=== PATIENT | female | born 1965 | race Caucasian/White ===

== ENCOUNTER 2025-02-23 13:41 | Emergency (ER) | payer BC, SELFPAY ==
[2025-02-23 14:03] VITALS: BP 142/97
[2025-02-23 14:41] LABS: % Basophils 0.9 % (0-2); % Eosinophils 8.4 % (0-6); % Immature Granulocytes 0.3 % (0-0.5); % Monocytes 8.2 % (1.7-9.3); % Neutrophils 49.2 % (42.2-75.2); Absolute Basophils 0.1 10^3/uL (0-0.2); Absolute Eosinophils 0.6 10^3/uL (0-0.7); Absolute Lymphocytes 2.2 10^3/uL (1.2-3.4); Absolute Monocytes 0.5 10^3/uL (0.1-0.6); Absolute Neutrophils 3.2 10^3/uL (1.4-6.5); Hematocrit 39.3 % (37.0-47.0); Hemoglobin 13.8 g/dL (12.0-16.0); Mean Corp Hgb Conc. 35.1 g/dL (33.0-37.0); Mean Corpuscular Hgb 32.7 pg (27.0-31.0); Mean Corpuscular Volume 93.1 fL (81.0-99.0); Mean Platelet Volume 9.2 fL (7.4-10.4); Nucleated Red Blood Cells % 0 %; Platelet Count 292 10^3/uL (130-400); Red Blood Cell Count 4.22 10^6/uL (4.20-5.40); Red Cell Dist. Width 12.7 % (11.5-14.5); White Blood Cell Count 6.6 10^3/uL (4.8-10.8)
[2025-02-23 15:01] LABS: ALT (SGPT) 34 U/L (0-35); AST (SGOT) 56 U/L (14-36); Albumin 4.9 g/dl (3.5-5.0); Alkaline Phosphatase 85 U/L (38-126); Blood Urea Nitrogen 6 mg/dl (7-17); Calcium 9.6 mg/dl (8.4-10.2); Carbon Dioxide 28 mmol/L (22-30); Chloride 103 mmol/L (98-107); Glucose 77 mg/dl (70-99); Potassium 4.6 mmol/L (3.5-5.1); Sodium 138 mmol/L (135-145); Total Bilirubin 0.7 mg/dl (0.2-1.3); Total Protein 7.5 g/dl (6.3-8.2); eGFR > 60.00
--- NOTE | 2025-02-23 18:53 | ED.GENMED ---
History of Present Illness
General
Chief Complaint: Rectal Bleeding
Time Seen by Provider: 02/23/25 17:39
History of Present Illness
History of Present Illness:
59-year-old female presenting to the emergency department for rectal bleed and rectal discomfort. Patient reports symptoms have been ongoing since October. She had a colonoscopy in September, noted to be normal. She was diagnosed with an anal
fissure. She has had persistent rectal discomfort, bleeding with bowel movements. She has been using sitz bath's, MiraLAX, fiber, topical lidocaine without significant relief. Denies associated abdominal pain. She is not on any blood thinners.
Denies chest pain, difficulty breathing, fever or additional acute medical complaints.
Phy Exam
Physical Exam
Physical Exam:
General: Well-appearing, no clinical signs of dehydration, nontoxic and in no acute distress
HEENT: protecting airway
Neck: appears supple
CV: Normal heart rate
Resp: No accessory muscle use, no increased work of breathing
Abd: Soft and non-distended, no tenderness to palpation
Extremities: No deformities, no swelling
Neuro: alert, no focal neurologic deficit
: Anal fissure at the 12 o'clock position
Rectal: deferred
Psych: Normal affect
Skin: Intact
Course
Orders/Labs/Results
Orders:
Orders
02/23/25 14:12
CMP [Comprehensive Metabolic Panel] Urgent
Complete Blood Count/With Diff Urgent
02/23/25 18:33
Lidocaine 2% [Lidocaine Uro-Jet 2%] 1 syringe TOPICAL NOW STA
Abnormal Lab Results
02/23/25
14:12
MCH 32.7 H pg
(27.0-31.0)
Eosinophils % 8.4 H %
(0-6)
BUN 6 L mg/dl
(7-17)
Creatinine 0.5 L mg/dL
(0.6-1.0)
AST 56 H U/L
(14-36)
02/23/25 14:12
02/23/25 14:12
Vital Signs
Initial and Last Documented VS:
Initial Vital Signs
Temp Pulse Resp BP Pulse Ox
98.3 F 90 18 142/97 97
02/23/25 14:03 02/23/25 14:03 02/23/25 14:03 02/23/25 14:03 02/23/25 14:03
Last Documented Vital Signs
Temp Pulse Resp BP Pulse Ox
98.3 F 90 18 142/97 97
02/23/25 14:03 02/23/25 14:03 02/23/25 14:03 02/23/25 14:03 02/23/25 14:03
MDM/Problems Addressed
MDM/Problems Addressed:
59-year-old female presenting with persistent rectal discomfort. Vital signs are normal.
On exam patient is resting comfortably, no acute distress or discomfort. Vital signs are stable. Rectal examination is consistent with an anal fissure. No rubio rectal bleeding. Labs checked, normal hemoglobin without any concern for
hemorrhage. No tenderness to the abdomen. Without present concern for any significant GI bleed or acute intra-abdominal abnormality. Ultimately feel stable for discharge with outpatient colorectal follow-up for possible surgical management given
duration of symptoms. Will prescribe nifedipine, topical. Encouraged continued use of fiber and sitz baths. Will provide information for colorectal surgery. Return precautions discussed and patient verbalized understanding
*Critical Care Note
Total Time (30-74mins, 75-104mins- exclusive of procedures): Not Applicable
ED Attending Note
-
Portions of this chart may have been created with voice recognition software.� Occasional wrong word or��sound alike� substitutions may have occurred due to the inherent limitations of voice recognition software.
Discharge Plan
Departure
Patient Disposition: Home (Routine Discharge)
Date of Disposition: 02/23/25
Time of Disposition: 18:52
Patient with high blood pressure during this ER visit?: No
Condition: Good
Discharge Problem:
Anal fissure
Instructions: Anal Fissure (DC)
Prescriptions:
New
nitroglycerin 0.4 % (w/w) ointment
1 inch OH BID 30 Days Qty: 30 0RF
Referrals:
Fallon Brantley DO [Family Provider] -
Marbin Del Valle MD [Active] -
Activity Restrictions/Additional Instructions:
You were seen in the emergency department for rectal discomfort
You were found to have an anal fissure. Please follow-up with the colorectal surgeon and use the medication as directed twice a day.
Please follow-up closely with your primary care physician.
Return to the emergency department for any worsening of your symptoms, or any development of chest pain, difficulty breathing, abdominal pain with persistent vomiting and inability to tolerate food or liquid by mouth (concern for dehydration),
weakness, headache or confusion, fever greater than 100.4, or any additional symptoms that are concerning to you.
Thank you for choosing [facility].
Interventions
Interventions:
*Risk Screen - Suicide Last Done: 02/23/25 14:03
*General Assessment Last Done: 02/23/25 14:03
*Neglect/Abuse Screening Last Done: 02/23/25 14:03
Discharge Date and Time
Print Language: WELSH
[2025-02-23] MEDS: LIDOCAINE URO-JET 2% 1 SYRINGE TOPICAL (18:54)
[2025-02-23 18:59] VITALS: BP 148/71
== END 2025-02-23 19:00 | disposition home or self-care (01) ==
LOC: EMR 13:41
PROVIDERS: Emergency Medicine; EMERGENCY PHYSICIAN Student in an Organized Health Care Education/Training Program; FAMILY PHYSICIAN Family Medicine
DX: K60.2 Anal fissure, unspecified (principal); K62.5 Hemorrhage of anus and rectum; K62.89 Other specified diseases of anus and rectum; Z88.2 Allergy status to sulfonamides
CPT/HCPCS: 99283; 80053; 85025